=== PATIENT | male | born 1980 ===

== ENCOUNTER 2025-04-29 15:44 | Outpatient (REF) | payer BC, SELFPAY ==
[2025-04-29 16:54] LABS: ALT 53 U/L (16-63); AST 55 U/L (15-37); Albumin 4.1 g/dL (3.4-5.0); Alkaline Phosphatase 85 U/L (46-116); Amylase 61 U/L (25-115); Anion Gap 9.2 mmol/L (3-11); BUN 10 mg/dL (7-18); Bilirubin, Total 0.4 mg/dL (0.2-1.0); CO2 28.8 mmol/L (21.0-32.0); Calcium 9.4 mg/dL (8.5-10.1); Chloride 102 mmol/L (98-107); Estimated GFR 109.36 (mL/min/1.73m2); Glucose 91 mg/dL (74-106); Lipase 48 U/L (<78); Potassium 3.8 mmol/L (3.5-5.1); Sodium 140 mmol/L (136-145); Total Protein 7.5 g/dL (6.4-8.2)
== END 2025-04-29 15:45 | disposition home or self-care (01) ==
LOC: LBN 15:44
PROVIDERS: Nurse Practitioner Family; PCP Acupuncturist; Visit Provider Acupuncturist
DX: R10.11 Right upper quadrant pain (principal)
CPT/HCPCS: 80053; 83690; 82150